=== PATIENT | male | born 1940 | race Caucasian/White ===

== ENCOUNTER 2023-03-18 12:53 | Inpatient (IN) | payer MEDICARE, SELFPAY ==
[2023-03-18] VITALS (25 sets, daily range): BP systolic 111–148; BP diastolic 48–78; PULSE 64–91; RESP 16–33; TEMP 36.4–36.7; O2SAT 92–100; BMI 29.6
--- NOTE | ~2023-03-18 | XR_ITS ---
XR chest 2V DATE: 03/18/2023 13:52 INDICATION: Shortness of breath TECHNIQUE: AP and lateral views COMPARISON: None FINDINGS: Cardiomegaly. There is pulmonary vascular prominence. There are diffuse pulmonary interstit ial infiltrates, with some probable areas of consolidation in the mid and particularly lower lung zon es in addition to probable bilateral lower lung atelectasis. There are bilateral pleural effusions, m ild amount of the right, mild on the left. Aortic arch calcification. Diffuse osteopenia. IMPRESSION: Congestive heart failure, probable pulmonary edema. Pneumonia is not excluded Reviewed, dictated and finalized at location L. AGE CONTROL CLERK IMPRESSION: Congestive heart failure, probable pulmonary edema. Pneumonia is no t excluded
--- NOTE | ~2023-03-18 | XR_ITS ---
EXAMINATION: XR chest 1V portable INDICATION: Shortness of breath TECHNIQUE: Portable AP chest at 1134 hours COMPARISON: 03/18/2023 FINDINGS: There are diffuse opacities throughout all lung zones. There are small pleural effusions, r ight greater than left. Cardiomegaly is noted. There is no pneumothorax. IMPRESSION: 1. Diffuse lung disease, likely pneumonia versus pulmonary edema. Reviewed, dictated and finalized at location F. TESTER
--- NOTE | ~2023-03-18 | US_ITS ---
EXAMINATION: US abdomen complete DATE: 03/19/2023 19:22 INDICATION: Thrombocytopenia TECHNIQUE: Multiple grayscale and Doppler ultrasound images of the abdomen were obtained. COMPARISON: None FINDINGS: Abdominal aorta is normal in caliber measuring 2.1 cm AP proximally, 2.0 cm in the mid aorta and 1.6 cm in the distal aorta. The visualized proximal inferior vena cava is normal. The pancreatic head and body are normal in appearance. The pancreatic tail is not visualized. Liver has normal echogenicity and contour, with a smooth surface. No liver lesion identified. No intrahepatic biliary duct dilatio n suspected. Portal venous flow was seen in the hepatopetal, normal direction and has normal Doppler waveform. Sludge and shadowing gallstones within the otherwise normal-appearing gallbladder. Common bile duct measures 3-4 mm in diameter which is normal. Sonographic Bee sign was reported as negati ve by the associate professor of theology. There is normal renal contour bilaterally. There is bilateral increased renal cortical echogenicity which can be seen with medical renal disease. The right kidney measures 9.7 x 5 .7 x 5.7 cm and the left 11.8 x 5.7 x 6.4 cm. There are bilateral anechoic renal cysts measuring up t o 5.8 cm maximal diameter on the left and 2.8 cm maximal diameter on the right. There is no hydroneph rosis. Spleen measures 11.5 cm in length which is normal. Indeterminate 3.9 x 3.2 x 2.3 cm very hypoe choic region along the posterior margin of the spleen. There are bilateral pleural effusions. IMPRESSION: 1. Cholelithiasis. 2. Bilateral pleural effusions. 3. Bilateral renal cysts and increased renal cortical echogenicity, bladder consistent with medical r enal disease. 4. Indeterminate 3.9 x 3.2 x 2.3 cm hypoechoic region along the posterior margin of the spleen. It is unclear where this represents a splenic lesion (potentially cystic), a small amount of perisplenic a scites or artifactual appearance related to the depth of imaging. Could consider CT for further evalu ation. Reviewed, dictated and finalized at location A. CLEANER IMPRESSION: 1. Cholelithiasis. 2. Bilateral pleural effusions. 3. Bilateral renal cysts and increased renal cortical echogenicity, bladder con sistent with medical renal disease. 4. Indeterminate 3.9 x 3.2 x 2.3 cm hypoechoic region along the posterior johnson n of the spleen. It is unclear where this represents a splenic lesion (potentia lly cystic), a small amount of perisplenic ascites or artifactual appearance re lated to the depth of imaging. Could consider CT for further evaluation.
--- NOTE | ~2023-03-18 | CT_ITS ---
EXAMINATION: CT abdomen pelvis wo con DATE: 03/20/2023 18:45 INDICATION: Abdominal wall mass TECHNIQUE: Computed tomography (CT) of the abdomen and pelvis was performed without intravenous contr ast. Automated exposure control and iterative reconstruction technique were employed. The dose-length product was 1130.49 mGy-cm. COMPARISON: Ultrasound dated 03/19/2023 FINDINGS: Moderate emphysema. Diffuse groundglass opacities in the aerated portions of the visualized lower constantino gs which could represent atelectasis, pulmonary edema or less likely pneumonia. Small bilateral pleur al effusions. There is dependent compressive atelectasis in the left lower lobe. There is collapse of the right middle lobe but with less in expected volume loss and with heterogeneous attenuation which suggests underlying lung disease such as pneumonia or malignancy. Cervical tiny calcified nodules in the right lower lobe along with calcified right hilar and mediastinal lymph nodes and multiple scatt ered tiny hepatic and splenic calcific lesions consistent with old granulomatous disease. Cardiomegal y. Atherosclerotic coronary artery calcifications. Decreased attenuation the blood pool relative to m yocardium consistent with anemia. No pericardial effusion. Calcified gallstones at the neck of the ot herwise normal-appearing gallbladder. A millimeter low-attenuation lesion in the right hepatic lobe m ost likely representing a cyst or hemangioma. A few scattered small dystrophic calcifications at the body the pancreas likely sequela of chronic pancreatitis. Indeterminate 3.8 x 2.4 cm hypodense mass a t the medial aspect of the spleen. 1.4 cm low-density right adrenal adenoma measuring -20 HU. Indeter minate bilobed soft tissue density 3.7 x 3.1 cm left adrenal mass. There are multiple bilateral renal cysts the largest a simple fluid attenuation 5.5 cm exophytic cyst at the left kidney. This also inc ludes a few smaller bilateral high attenuation proteinaceous/hemorrhagic cyst. There are also bilater al intermediate attenuation renal lesions, the largest on the right measuring 2.9 cm which could repr esent additional complex cysts although differential would also include renal cell carcinoma. There i s mild bilateral hydroureteronephrosis extending to the distended bladder without evident obstructing stone or mass is likely reflecting outlet obstruction from the enlarged prostate which measures 6 x 5 cm. There are few scattered colonic diverticula without adjacent from trace stranding to suggest di verticulitis. Surgical clip and anastomotic suture line along the transverse colon. Small bowel and a ppendix are normal. There is prominent stranding with a few small more irregular nodular densities al cathleen the greater omentum in the right abdomen. There is a 3.8 x 2.7 cm loculated fluid collection like ly along the lesser omentum between the greater curvature of the stomach and the transverse colon, po tentially postoperative hematoma/seroma. No infiltrate stranding immediately adjacent fat to elevate suspicion for abscess.. No free intraperitoneal gas or fluid. Small fat-containing right inguinal her tanya. There is calcified atherosclerosis of the aorta and many of the other arteries. There is stentin g at the bilateral common iliac and proximal external iliac arteries. No pathologically enlarged abdo brisa or pelvic lymphadenopathy. Moderate lumbar and lower thoracic spondylosis with bridging osteoph ytes at multiple levels consistent with diffuse idiopathic skeletal hyperostosis (DISH). There are se veral scattered small densely sclerotic bone islands in the pelvis and proximal femurs. IMPRESSION: 1. Nonspecific lung disease in the collapsed right lower lobe which could represent pneumonia or rishi gnancy. 2. Small bilateral pleural effusions. 3. Indeterminate 3.8 x 2.4 cm hypodense mass at the medial spleen. 4. Cardiomegaly. 5. Stranding and possible nodularity along the right
--- NOTE | ~2023-03-18 | US_ITS ---
EXAMINATION: US venous doppler [facility] DATE: 03/19/2023 19:09 INDICATION: Bilateral swelling TECHNIQUE: Grayscale ultrasound images without and with compression and Doppler ultrasound images of the bilateral lower extremity veins were obtained. COMPARISON: None. FINDINGS: The visualized portions of right common femoral vein, profunda (deep) femoral vein, femoral vein, pop liteal vein, posterior tibial veins, peroneal veins and greater saphenous vein outflow are patent. The visualized portions of left common femoral vein, profunda femoral vein, femoral vein, popliteal v ein, posterior tibial veins, peroneal veins and greater saphenous vein outflow are patent. IMPRESSION: 1. No deep venous thrombosis in either lower limb. Reviewed, dictated and finalized at location A. B RN
--- NOTE | 2023-03-18 13:14 | ECG_ITS ---
Measurements Intervals [place] Rate: 65 P: 46 IL: 217 QRS: -16 QRSD: 197 T: 189 QT: 456 QTc: 477 Interpretive Statements SINUS RHYTHM WITH FIRST DEGREE AV BLOCK LEFT BUNDLE BRANCH BLOCK BASELINE ARTIFACT- I, II, III, V1-V6 ABNORMAL ECG NO PREVIOUS ECG AVAILABLE FOR COMPARISON Electronically Signed On 03-18-2023 13:43:11 STEEL ERECTOR by Ambrocio Lund D.O.
[2023-03-18 13:40] LABS: Eosinophils Percent Auto 0.2 % (0-4.4); Hematocrit 26.5 % (42.0-52.0); Hemoglobin 8.1 g/dL (14.0-18.0); Immature Granulocyte Absolute 0.23 K/mm3 (0.00-0.031); Immature Granulocyte Percent A 4.3 % (0-0.5); Immature Platelet Fraction Pct 11.4 % (0.9-11.2); Lymphocytes Absolute Auto 0.47 K/mm3 (0.9-3.2); Lymphocytes Percent Auto 8.9 % (18.3-44.2); Mean Corpuscular HGB Conc 30.6 g/dl (32-36); Mean Corpuscular Volume 98.1 fl (80-100); Mean Platelet Volume 12.7 fl (7.4-10.4); Monocytes Absolute Auto 2.3 K/mm3 (0.1-0.6); Monocytes Percent Auto 42.5 % (2.6-8.5); Neutrophils Absolute Auto 2.3 K/mm3 (1.3-6.7); Neutrophils Percent Auto 44.1 % (45.5-73.1); Platelet Count Result 66 k/mm3 (150-375); Red Cell Distribution Width 18.8 % (11.5-14.5); White Blood Count 5.3 K/mm3 (4.5-10.0)
--- NOTE | 2023-03-18 13:46 | ED.GENADULT ---
HPI - General Adult General Chief complaint: Shortness of Breath/Dyspnea Stated complaint: DYSPNEA Time Seen by Provider: 03/18/23 13:43 History of Present Illness HPI narrative: 82-year-old male with history of CHF, CAD, hypertension, high cholesterol, COPD, thrombocytopenia, type 2 diabetes, chronic kidney disease that was admitted to [facility] from home. Patient was admitted last night. Patient did have a recent admission to [facility] ICU for an NSTEMI. The patient was discharged home from the ICU on 02/27 in after getting home patient he did have multiple falls. Patient was admitted to inpatient rehab by his primary care physician. This morning the patient was found to be hypoxic, short of breath with lower extremity edema patient had a BNP of greater than 30,000 a creatinine of 2. Patient is requiring 4 5 L of oxygen. Hospitalist did not feel the patient was stable for rehab hospitalization Related Data Home Medications Medication Instructions Recorded Confirmed atorvastatin 40 mg tablet 40 mg PO HS 03/17/23 03/17/23 carvedilol 3.125 mg tablet 3.125 mg PO BID 03/17/23 03/17/23 cephalexin 500 mg capsule 500 mg PO BID 03/17/23 03/17/23 cyanocobalamin (vitamin B-12) 100 100 mcg PO BID 03/17/23 03/17/23 mcg tablet empagliflozin 10 mg tablet 10 mg PO DAILY 03/17/23 03/17/23 (Jardiance) fish gah-vtpsl-2-vit C-vit E 1,000 mg PO BID 03/17/23 03/17/23 furosemide 40 mg tablet 40 mg PO DAILY 03/17/23 03/17/23 insulin glargine 100 unit/mL 20 unit subcut QHS 03/17/23 03/17/23 subcutaneous solution (Lantus U-100 Insulin) insulin lispro 100 unit/mL See Protocol subcut TIDWM 03/17/23 03/17/23 subcutaneous solution (Humalog U-100 Insulin) ipratropium 0.5 mg-albuterol 3 mg 3 ml inhalation QID 03/17/23 03/17/23 (2.5 mg base)/3 mL nebulization soln isosorbide dinitrate 20 mg tablet 20 mg PO BID 03/17/23 03/17/23 latanoprost 0.005 % eye drops 1 drp EACH EYE QHS 03/17/23 03/17/23 pantoprazole 40 mg tablet,delayed 40 mg PO QPM 03/17/23 03/17/23 release spironolactone 25 mg PO DAILY 03/17/23 03/17/23 tamsulosin 0.4 mg capsule 0.4 mg PO HS 03/17/23 03/17/23 Allergies Allergy/AdvReac Type Severity Reaction Status Date / Time No Known Allergies Allergy Verified 03/18/23 17:04 Review of Systems Review of Systems: All systems reviewed & are unremarkable except as noted in HPI and below [facility] Past Medical History Medical History (Updated 03/18/23 @ 19:11 by Vasquez Capps MD) Chronic anemia Chronic kidney disease Chronic obstructive pulmonary disease Combined systolic and diastolic congestive heart failure Coronary artery disease Glaucoma Hyperlipidemia Hypertension Insulin dependent type 2 diabetes mellitus Ischemic cardiomyopathy Prolonged QT interval Thrombocytopenia Surgical History Surgical History (Updated 03/18/23 @ 18:30 by Opal Kathleen PA-C) History of partial colectomy (01/2023) Transverse colectomy at [facility]. Social History Social History (Updated 03/18/23 @ 18:31 by Opal Kathleen PA-C) Social History: Surrogate medical decision maker: Denise Andrade, daughter. Code status: Full code. Smoking packs per day: 3 Smoking cigarettes per day: 60.0 Years smoked: 30 Smoking pack-years: 90.00 Smoking status: Former smoker Tobacco type: cigarettes Second hand tobacco smoke exposure: Yes (Paternal) Smoking end date: 03/19/13 Alcohol intake: former Substance use: never Spiritual care concerns: No Exam Narrative: APPEARANCE: Well appearing, no pain, no distress, well-nourished. HEAD: normocephalic, atraumatic. EYES: PERRLA/EOMI, conjunctivae clear. NOSE: Normal no drainage EARS:TMS clear with good light reflex. THROAT: Pharynx clear, no exudate. NECK: Supple. No adenopathy, no masses. RESPIRATORY: Airway patent, respirations nonlabored. Clear to auscultation bilaterally, no rales, rhonchi, wheezing. CARDIOVASCULAR: Regular rate and rhythm w
[2023-03-18 13:49] LABS: Alanine Aminotransferase 25 U/L (6-50); Albumin Level 3.1 g/dL (3.5-5.1); Alkaline Phosphatase 78 U/L (38-126); Anion Gap 5 mmol/L (8-16); Aspartate Amino Transferase 18 U/L (17-59); Bilirubin,Total 1.1 mg/dL (0.2-1.3); Blood Urea Nitrogen 60 mg/dL (9-20); Calcium 8.3 mg/dL (8.4-10.2); Carbon Dioxide 31 mmol/L (22-30); Chloride 100 mmol/L (98-107); Estimated CRCL calculation 30 ml/min; Estimated Glomerular Filt Rate 29; Glucose 190 mg/dL (65-110); Potassium 4.5 mmol/L (3.4-5.0); Sodium 136 mmol/L (137-145)
[2023-03-18 13:58] LABS: Platelet Estimate Decreased (Adequate); Schistocytes None Seen (NORMAL)
[2023-03-18 13:59] LABS: Hypochromasia 2+ (NORMAL)
[2023-03-18 14:29] LABS: NT Pro B Type Natriuretic Pept > 30000 pg/mL (19.9-100)
--- NOTE | 2023-03-18 16:11 | PC.NURSE ---
Pts daughter Diana called ER inquiring pt status. She states that [facility] staff were frustrated last night upon pt admission because of pt weakness, the staff at rehab reported to daughter they could not handle pt kidney failure. Diana voices she sent him to rehab for his weakness and is not understanding rehab concerns.
--- NOTE | 2023-03-18 17:11 | PC.NURSE ---
Pt repositioned for comfort. Pt & daughter state pt has sore on coccyx & bilateral great toes, right 3rd toe. Wound on left great toe scabbed with surrounding tissue red. Pedal pulses palp.
--- NOTE | 2023-03-18 17:27 | PC.NURSE ---
Dr. wiggisn informed pt Sa02 dropped to 80% with 5L NC oxygen. Resp therapy informed of stat Resp treatment
[2023-03-18] MEDS: ALBUTEROL SULFATE NEB 2.5 MG/3 ML INH INHALATION (17:35)
[2023-03-18] MEDS: FUROSEMIDE INJ 40 MG/4 ML VIAL IV PUSH (17:52)
--- NOTE | 2023-03-18 18:01 | PC.NURSE ---
Pt unable to maintain Sa02 on nasal cannula. Oxygen via NRB mask applied Sa02 up to 100%. Dr. Capps informed, request Resp place pt on bipap. Angelica with resp notified
--- NOTE | 2023-03-18 18:21 | PM.IMHP ---
H&P: HPI History of Present Illness Date/Time: 03/18/23 19:30 Chief Complaint: Shortness of breath. Narrative: This is a very pleasant 82-year-old male with multiple medical problems including combined diastolic and systolic congestive heart failure, ischemic cardiomyopathy, coronary artery disease, prolonged QT interval, hypertension, hyperlipidemia, chronic kidney disease, anemia, chronic obstructive pulmonary disease, insulin-dependent type 2 diabetes mellitus, gastroesophageal reflux disease, benign prostatic hyperplasia, and thrombocytopenia who presented to the emergency department via EMS from [facility] for evaluation of shortness of breath. The patient provides the following history. He has been hospitalized several times in the last couple of months. In mid January he had a transverse colectomy due to a large colon polyp which was ultimately discovered to be benign. He was hospitalized not long thereafter with rectal bleeding due to surgical site hematoma. He was admitted to [facility] on 02/23/2023 with non STEMI (no intervention, started on guideline directed medical therapy for combined systolic and diastolic congestive heart failure) and was discharged home with home health 5 days thereafter. He felt quite weak on discharge and he has been weak at home and has had several falls, luckily not injuring himself. His primary care provider referred him for rehabilitation [facility] where he was admitted last night. He was sent to the emergency department today as he was hypoxic and short of breath though the patient did not think he was any worse than his baseline. His SpO2 was as low as 86% on the 3 L he presented on and he was ultimately started on BiPAP due to ongoing hypoxia. Preliminary workup was significant for a BNP of greater than 30,000, hemoglobin 8.1, platelets 66, BUN 60, creatinine 2.20. Chest x-ray showed congestive changes. He was given a dose of IV furosemide 40 mg is being admitted in this setting with CHF exacerbation. At the time my evaluation he does not have any specific complaints and denies syncope, near syncope, fever, chills, sweats, sinus congestion, sore throat, cough, chest pain, pleuritic pain, palpitations, sensations of racing heart, abdominal pain, nausea, vomiting, diarrhea, and dysuria. He also denies epistaxis, gingival bleeding, melena, hematochezia, and hematuria. Review of Systems Constitutional: Comments: Twelve systems were reviewed and are negative except for as per HPI. PMFSH Past Medical History Medical History (Updated 03/19/23 @ 00:36 by Opal Kathleen PA-C) Chronic anemia Chronic kidney disease Chronic obstructive pulmonary disease Combined systolic and diastolic congestive heart failure Coronary artery disease Glaucoma Hyperlipidemia Hypertension Insulin dependent type 2 diabetes mellitus Ischemic cardiomyopathy Peripheral vascular disease Prolonged QT interval Thrombocytopenia Surgical History Surgical History (Updated 03/19/23 @ 00:33 by Opal Kathleen PA-C) History of cardiac catheterization History of coronary artery stent placement History of intravascular stent placement Right lower extremity. History of partial colectomy (01/2023) Transverse colectomy at [facility]. Social History Social History Social History: Surrogate medical decision maker: Denise Andrade, daughter. Code status: Full code. Smoking packs per day: 3 Smoking cigarettes per day: 60.0 Years smoked: 30 Smoking pack-years: 90.00 Smoking status: Former smoker Tobacco type: cigarettes Second hand tobacco smoke exposure: Yes (Paternal) Smoking end date: 03/19/13 Alcohol intake: never Substance use: never Substance use type: does not use Do You Feel Safe in your Home?: Yes Lack of Transportation: No Lack of Food: Never True Current Housing: I Have Housing Concerned About Fut
--- NOTE | 2023-03-18 19:19 | PC.NURSE ---
Pt tolerating Bipap. Assisted with urinal, pt repositioned for comfort. Daughters at bedside. Report to Maxine VASQUES
--- NOTE | 2023-03-18 19:28 | PC.NURSE ---
Pt tolerating Bipap. Daughters at bedside. [facility] notified spoke with Erika pt being admitted. Pt repositioned for comfort
--- NOTE | 2023-03-18 20:03 | PC.NURSE ---
Faxed medical release to [facility] to obtain records
[2023-03-18] MEDS: FUROSEMIDE INJ 40 MG/4 ML VIAL 20 MG IV PUSH (22:58)
[2023-03-19] VITALS (27 sets, daily range): BP systolic 112–125; BP diastolic 52–63; PULSE 61–91; RESP 17–38; TEMP 36.2–36.8; O2SAT 91–100
--- NOTE | 2023-03-19 01:11 | PC.NURSE ---
This patient, Mike Barbosa, was admitted to IMU Room 202-01. Patient oriented to hospital policies and general routines including ID bracelet, bed and alarms, visiting hours, pain management, procedures, bathroom and other care routines, personal items, smoking policy, room service/diet, and visiting hours. Information on how to activate the Rapid Response Team has been discussed. Patient encouraged to report perceived risks to care and to ask questions if they do not understand what they are told or what they should do.
[2023-03-19 04:57] LABS: Hematocrit 30.2 % (42.0-52.0); Mean Corpuscular HGB Conc 29.8 g/dl (32-36); Mean Corpuscular Hemoglobin 29.7 pg (26-34); Mean Corpuscular Volume 99.7 fl (80-100); Mean Platelet Volume 12.9 fl (7.4-10.4); Platelet Count Result 67 k/mm3 (150-375); Red Blood Count 3.03 M/mm3 (4.6-6.20); Red Cell Distribution Width 19.9 % (11.5-14.5); White Blood Count 6.5 K/mm3 (4.5-10.0)
[2023-03-19 05:20] LABS: Anion Gap 7 mmol/L (8-16); Blood Urea Nitrogen 53 mg/dL (9-20); Calcium 8.6 mg/dL (8.4-10.2); Carbon Dioxide 32 mmol/L (22-30); Chloride 101 mmol/L (98-107); Estimated CRCL calculation 28 ml/min; Estimated Glomerular Filt Rate 30; Glucose 108 mg/dL (65-110); Magnesium 2.3 mg/dL (1.6-2.3); Potassium 4.2 mmol/L (3.4-5.0); Sodium 140 mmol/L (137-145)
[2023-03-19 05:25] LABS: Hemoglobin A1C 4.9 % (<5.7)
[2023-03-19 08:03] LABS: Glucose Point of Care 92 mg/dl (65-105)
[2023-03-19] MEDS: CYANOCOBALAMIN 1,000 MCG TABLET 1000 MCG PO (08:38)
[2023-03-19] MEDS: OMEGA 3 POLYUNSAT FATTY ACIDS 1 GM CAP PO ×2 (08:38→19:00)
[2023-03-19] MEDS: EMPAGLIFLOZIN 10 MG TABLET PO (08:38)
[2023-03-19] MEDS: carvediloL 3.125 MG TABLET PO ×2 (08:38→21:13)
[2023-03-19] MEDS: SPIRONOLACTONE 25 MG TABLET PO (08:38)
[2023-03-19] MEDS: FUROSEMIDE INJ 40 MG/4 ML VIAL IV PUSH ×2 (08:38→19:04)
[2023-03-19] MEDS: ISOSORBIDE DINITRATE 20 MG TABLET PO ×2 (08:39→19:00)
[2023-03-19] MEDS: CEPHALEXIN 500 MG CAPSULE PO ×2 (08:39→21:13)
[2023-03-19 09:30] LABS: Iron 48 ug/dL (49-181)
[2023-03-19 09:39] LABS: Percent Iron Saturation 16 % (20-50)
--- NOTE | 2023-03-19 10:09 | PDONCCN ---
HPI - Date of Consult Date/Time: 03/19/23 10:09 Requesting Physician: Santino Hector MD Primary Care Provider: Mario Rogers, - Consult Narrative Reason for consult: Thrombocytopenia and Anemia Narrative: Mike Barbosa is a 82 year old male with a past medical history of HF, COPD, HTN, HLD, CKD, anemia, COPD, DM, GERD, BPH who was admitted for shortness of breath and hypoxia from [facility]. He did not feel as if it was worse than his baseline. He hospitalized in mid January and he had a transverse colectomy due to a large colon polyp which was ultimately discovered to be benign. He was hospitalized not long thereafter with rectal bleeding due to surgical site hematoma. He was admitted to [facility] in [place] on 02/23/2023 with non STEMI and was discharged home with home health 5 days later. He felt weak and his PCP admitted him to [facility]. The hospitalist at rehab did not find him fit for rehab as he was hypoxic and short of breath though the patient did not think he was any worse than his baseline. He denies having blood loss now. Reports occasional alcohol use in the past. Did not have a history of anemia before this blood loss incident. He reports seeing a kidney doctor once. He is currently tolerating BIPAP well and reports some shortness of breath. Review of Systems - Review of Systems All systems reviewed & are unremarkable except as noted in [facility] and [facility] Medical History: Medical History (Last Updated 03/19/23 @ 00:33 by Opal Kathleen PA-C) Chronic anemia Chronic kidney disease Chronic obstructive pulmonary disease Combined systolic and diastolic congestive heart failure Coronary artery disease Glaucoma Hyperlipidemia Hypertension Insulin dependent type 2 diabetes mellitus Ischemic cardiomyopathy Peripheral vascular disease Prolonged QT interval Thrombocytopenia Surgical History: Surgical History (Last Updated 03/19/23 @ 00:33 by Opal Kathleen PA-C) History of cardiac catheterization History of coronary artery stent placement History of intravascular stent placement Right lower extremity. History of partial colectomy Onset Date: 01/2023 Transverse colectomy at [facility]. - Social History Social History: Social History (Last Reviewed 03/19/23 @ 00:33 by Opal Kathleen PA-C) Alcohol Use: Alcohol intake: never Substance Use: Substance use: never Substance use type: does not use Others: Spiritual care concerns: No Smoking Status: Smoking status: Former smoker Tobacco type: cigarettes Second hand tobacco smoke exposure: Yes Second hand tobacco smoke exposure comment: Paternal Smoking end date: 03/19/13 Approximate Smoking End Date: 2011 Smoking Pack-years: Smoking packs per day: 3 Smoking cigarettes per day: 60.0 Years smoked: 52 Smoking pack-years: 156.00 Social Determinants of Health: Do You Feel Safe in your Home?: Yes Has the Lack of Transportation Kept You From Medical Appointments or From Getting Medications?: No Within the Past 12 Months, Were You Worried Whether Your Food Would Run Out Before You Got Money to Buy More?: Never True What is Your Housing Situation Today?: I Have Housing Are You Worried That in the Next 2 Months, You May Not Have Your Own Housing to Live In?: No Do You Have Trouble Paying Your Heating Or Electricity Bill?: No Do You Have Trouble Paying For Medicines?: No Are You Currently Unemployed and Looking for Work?: No Highest Level of Education Completed: Decline to Answer Do You Have Trouble With Childcare or the Care of a Family Member?: No Exam - General Pt is resting in bed, with BIPAP on, in no acute distress - Vital Signs Vital Signs - 24 hr 03/18/23 13:07 03/18/23 13:01 03/18/23 13:15 Temperature 36.4 C Pulse Rate 71 91 70 Respiratory Rate 24 H 17 17 Blood Pressure 116/54 L
[2023-03-19 10:11] LABS: Folic Acid 3.5 ng/mL (2.76->20); Vitamin B12 > 1000.0 pg/mL (239-931)
[2023-03-19 12:00] LABS: Glucose Point of Care 108 mg/dl (65-105)
[2023-03-19] MEDS: IRON SUCROSE COMPLEX 500 MG in SODIUM CHLORIDE 0.9% IV 250 ML 78.57 MG IVPB (15:31)
--- NOTE | 2023-03-19 16:35 | PM.IMPN ---
Progress Note: A&P Assessment and Plan (1) Acute respiratory failure with hypoxia: Code(s): J96.01 - Acute respiratory failure with hypoxia Status: Acute Assessment and Plan: Presumably secondary to congestive changes noted on imaging. Pulmonary embolism is a consideration though seems less likely. Unable to have chest CTA due to decreased GFR. Lower extremity venous Doppler ultrasounds ordered and is pending Consider V/Q scan. Wean Bipap off as tolerated to nasal cannula (2) Acute exacerbation of congestive heart failure: Code(s): I50.9 - Heart failure, unspecified Status: Acute Assessment and Plan: Chest x-ray shows congestive changes. BNP >30K Judicious IV diuresis with close monitoring of volume status, renal function, and electrolytes. Records requested from [facility] to review recent echocardiogram. Monitor for urine retention (3) Chronic kidney disease: Code(s): N18.9 - Chronic kidney disease, unspecified Status: Acute Assessment and Plan: Patient and family reports CKD but baseline creatinine is unknown. Records requested from [facility] for comparison. Bladder scan to rule out urinary retention. Check Renal ultrasound (4) Thrombocytopenia: Code(s): D69.6 - Thrombocytopenia, unspecified Status: Acute Assessment and Plan: Patient reports having platelet transfusion when hospitalized with bleeding following his colectomy last month. He does not have a longstanding history of thrombocytopenia. Hematology consulted for their opinion. (5) Chronic anemia: Code(s): D64.9 - Anemia, unspecified Status: Acute Assessment and Plan: Patient reports chronic anemia and received several units of packed red blood cells with his hospitalization in January. Hgb stable in the 8-9 range. Better today as he is undergoing diuresis. Iron studies consistent with iron deificiency anemia. B12/folate normal. Continue to monitor closely and transfuse if hemoglobin drops below 7.0. IV iron (6) Chronic obstructive pulmonary disease: Code(s): J44.9 - Chronic obstructive pulmonary disease, unspecified Status: Acute Assessment and Plan: No wheezing on exam to suggest acute exacerbation. Hold on steroids for now. (7) Coronary artery disease: Code(s): I25.10 - Atherosclerotic heart disease of [place] coronary artery without angina pectoris Status: Acute Assessment and Plan: Patient is not having any chest discomfort. EKG shows left bundle branch block which is reportedly chronic. Did not have ischemic evaluation with recent hospitalization for non STEMI. Cardiology consulted. Continue Coreg, Lipitor. No ASA due to anemia and TCP. 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 The patient's blood glucose was reviewed on 03/19 Glucose remains well controlled. Continue AccuCheks covering with sliding scale. Hypoglycemia protocol available as needed. Continue to monitor (9) Hypertension: Code(s): I10 - Essential (primary) hypertension Status: Acute Assessment and Plan: Patient's blood pressure was reviewed on 03/19 Blood pressure remains well controlled. Will continue to follow Plan DVT prophylaxis -SCDs Code status -full Subjective Date/time seen: 03/19/23 16:35 Interval history: 82yo male with COPD, CHF, CAD, HTN and DM here for SOB. Assuming care. Chart reviewed. Came off Bipap this morning for about 30min before having to go back on. No CP. No SOB since being back on bipap. No n/v. No hx of ANDREW. Has been on O2 3L at home for the past 2 weeks. Was recently discharged 2 weeks ago and was told to take Lasix as needed (normally was on scheduled Lasix).
--- NOTE | 2023-03-19 16:44 | PM.CNCAR ---
Assessment and Plan Assessment and plan (1) Acute exacerbation of congestive heart failure: Code(s): I50.9 - Heart failure, unspecified Status: Acute Assessment and Plan: Patient presents with evidence of decompensated heart failure and acute hypoxic respiratory failure initially BiPAP dependent for fractured IV Lasix thus far. Continue supportive care of hospital including echo cardiac evaluation, laboratory studies when available as requested. Accurate input and output, daily weight. Continue manager monitoring for ventricular arrhythmias. Continue Lasix 40 mg IV twice daily, Jardiance 10 mg daily, carvedilol 3.125 mg twice daily, Isordil 20 mg twice daily, spironolactone 25 mg daily. Continue to monitor renal function electrolytes closely. At this time, patient is hemodynamically stable. Further recommendation to follow after review of outside evaluations and patient's clinical response to therapy. Patient presents with multiple comorbidities anemia, thrombocytopenia, acute on chronic respiratory failure, reported recent NSTEMI, CKD, COPD, and CAD. Patient at high risk for complications. Continue close IMU observation on telemetry. Patient at high risk for subsequent decline and intubation if he does not respond to noninvasive positive pressure ventilatory support. (2) Acute respiratory failure with hypoxia: Code(s): J96.01 - Acute respiratory failure with hypoxia Status: Acute Assessment and Plan: As above, wean O2 and noninvasive positive-pressure ventilation support as clinically appropriate in as tolerated. Exacerbated secondary to acute on chronic heart failure decompensation complicated by underlying COPD, anemia. Check troponin. (3) Thrombocytopenia: Code(s): D69.6 - Thrombocytopenia, unspecified Status: Acute Assessment and Plan: Chronic thrombocytopenia severity around 67,000. Patient is not a good candidate for full systemic anticoagulation of warranted as well as antiplatelet therapy particularly given recent bleeding complications and ongoing anemia. (4) Coronary artery disease: Code(s): I25.10 - Atherosclerotic heart disease of [place] coronary artery without angina pectoris Status: Acute Assessment and Plan: Reported NSTEMI for least elevated troponin outside hospital which I do not have the records available for review at this time. These have been requested. Further recommendations after review. Continue atorvastatin 40 mg at bedtime, 3 will advise mg twice daily. He remains on Isordil 20 mg twice daily. (5) Acute kidney injury superimposed on chronic kidney disease: Code(s): N17.9 - Acute kidney failure, unspecified; N18.9 - Chronic kidney disease, unspecified Status: Acute Assessment and Plan: Mild acute on chronic kidney injury. Monitor input and output, daily weight. Minimize nephrotoxic agents. Provided his renal function remains stable continue diuretic therapy as tolerated (6) Anemia: Code(s): D64.9 - Anemia, unspecified Status: Acute Assessment and Plan: Further workup for anemia as appropriate. Oncology consultation noted. Multifactorial etiology most likely. (7) Insulin dependent type 2 diabetes mellitus: Code(s): E11.9 - Type 2 diabetes mellitus without complications; Z79.4 - FPC (current) use of insulin Status: Acute Assessment and Plan: Management per hospitalist service. Lantus insulin with sliding scales appropriate. History of Present Illness History of Present Illness Consult date/time: Date of service: 03/19/23 16:44 Requesting physician: Opal Kathleen PA-C Consult reason: congestive heart failure Reason For Visit: Congestive Heart Failure, Fluid Overload, Hypoxia, Narrative: Patient is a pleasant yet complicated 82-year-old gentleman a past medical history significant for reported systolic and diastolic heart failure, CAD, ischemic cardiom
[2023-03-19 16:58] LABS: Glucose Point of Care 92 mg/dl (65-105)
[2023-03-19 18:21] LABS: Glucose Point of Care 96 mg/dl (65-105)
[2023-03-19] MEDS: FERROUS SULFATE 325 MG TABLET DR PO (19:03)
[2023-03-19 19:38] LABS: Glucose Point of Care 130 mg/dl (65-105)
--- NOTE | 2023-03-19 19:55 | PC.NURSE ---
pt has been NPO today for US abdomen- @184 US completed at bedside- evening medications given - remains on BIPAP resp @30- pt stated he was breathing better than earlier today
[2023-03-19] MEDS: TAMSULOSIN HCL 0.4 MG CAPSULE PO (21:13)
[2023-03-19] MEDS: ATORVASTATIN 40 MG TABLET PO (21:13)
[2023-03-19] MEDS: INSULIN GLARGINE (*BKC) 100 UNITS/ML 20 UNITS SUB-Q (21:14)
[2023-03-19] MEDS: LATANOPROST 0.005% OP SOLN 2.5 ML BTL 1 DROP EACH EYE (21:16)
[2023-03-20] VITALS (20 sets, daily range): BP systolic 112–133; BP diastolic 53–72; PULSE 71–99; RESP 20–30; TEMP 36.1–36.7; O2SAT 90–99
[2023-03-20 02:08] LABS: Glucose Point of Care 80 mg/dl (65-105)
[2023-03-20 05:39] LABS: Basophils Percent Auto 0.2 % (0.2-1.2); Eosinophils Percent Auto 0.2 % (0-4.4); Hematocrit 27.4 % (42.0-52.0); Hemoglobin 8.3 g/dL (14.0-18.0); Immature Granulocyte Absolute 0.22 K/mm3 (0.00-0.031); Immature Platelet Fraction Pct 9.8 % (0.9-11.2); Lymphocytes Absolute Auto 0.49 K/mm3 (0.9-3.2); Mean Corpuscular HGB Conc 30.3 g/dl (32-36); Mean Corpuscular Hemoglobin 29.6 pg (26-34); Mean Corpuscular Volume 97.9 fl (80-100); Mean Platelet Volume 12.7 fl (7.4-10.4); Monocytes Absolute Auto 2.8 K/mm3 (0.1-0.6); Monocytes Percent Auto 50.5 % (2.6-8.5); Neutrophils Percent Auto 36.1 % (45.5-73.1); Platelet Count Result 62 k/mm3 (150-375); Red Cell Distribution Width 19.8 % (11.5-14.5); White Blood Count 5.5 K/mm3 (4.5-10.0)
[2023-03-20 05:53] LABS: Alanine Aminotransferase 20 U/L (6-50); Albumin Level 3.1 g/dL (3.5-5.1); Alkaline Phosphatase 81 U/L (38-126); Anion Gap 6 mmol/L (8-16); Aspartate Amino Transferase 16 U/L (17-59); Bilirubin,Total 2.1 mg/dL (0.2-1.3); Blood Urea Nitrogen 46 mg/dL (9-20); Calcium 8.5 mg/dL (8.4-10.2); Carbon Dioxide 34 mmol/L (22-30); Chloride 101 mmol/L (98-107); Estimated CRCL calculation 29 ml/min; Estimated Glomerular Filt Rate 32; Glucose 111 mg/dL (65-110); Magnesium 2.2 mg/dL (1.6-2.3); Phosphorus 2.7 mg/dL (2.5-4.5); Sodium 141 mmol/L (137-145)
[2023-03-20 08:05] LABS: Glucose Point of Care 87 mg/dl (65-105)
[2023-03-20] MEDS: FUROSEMIDE INJ 40 MG/4 ML VIAL IV PUSH ×2 (10:09→17:45)
[2023-03-20] MEDS: SPIRONOLACTONE 25 MG TABLET PO (10:09)
[2023-03-20] MEDS: carvediloL 3.125 MG TABLET PO ×2 (10:12→20:25)
[2023-03-20] MEDS: ISOSORBIDE DINITRATE 20 MG TABLET PO ×2 (10:12→17:45)
[2023-03-20] MEDS: CYANOCOBALAMIN 1,000 MCG TABLET 1000 MCG PO (10:12)
[2023-03-20] MEDS: CEPHALEXIN 500 MG CAPSULE PO ×2 (10:12→20:24)
[2023-03-20] MEDS: OMEGA 3 POLYUNSAT FATTY ACIDS 1 GM CAP PO ×2 (10:12→17:45)
[2023-03-20] MEDS: EMPAGLIFLOZIN 10 MG TABLET PO (10:12)
[2023-03-20] MEDS: FERROUS SULFATE 325 MG TABLET DR PO ×2 (10:12→17:45)
[2023-03-20 11:32] LABS: Glucose Point of Care 163 mg/dl (65-105)
--- NOTE | 2023-03-20 13:08 | PM.PNCARD ---
Progress Note: A&P Assessment and Plan (1) Acute exacerbation of congestive heart failure: Code(s): I50.9 - Heart failure, unspecified Status: Acute Assessment and Plan: Patient presents with evidence of decompensated heart failure and acute hypoxic respiratory failure initially BiPAP dependent for fractured IV Lasix thus far. Continue supportive care of hospital including echo cardiac evaluation, laboratory studies when available as requested. Accurate input and output, daily weight. Continue child monitor for ventricular arrhythmias. -Continue Lasix 40 mg IV twice daily, Jardiance 10 mg daily, carvedilol 3.125 mg twice daily, Isordil 20 mg twice daily, spironolactone 25 mg daily. Continue to monitor renal function electrolytes closely. At this time, patient is hemodynamically stable. Further recommendation to follow after review of outside evaluations and patient's clinical response to therapy. Patient presents with multiple comorbidities anemia, thrombocytopenia, acute on chronic respiratory failure, reported recent NSTEMI, CKD, COPD, and CAD. Patient at high risk for complications. Continue close IMU observation on telemetry. Patient at high risk for subsequent decline and intubation if he does not respond to noninvasive positive pressure ventilatory support. He is improving as he is no longer BiPAP dependent yet still remains hypoxic. Continue IV diuresis repeat chest x-ray, check troponin. Continue telemetry. Review prior cardiac records when available. Recommendations to follow. DVT prophylaxis. Underlying left bundle-branch block on ECG chronicity unknown. Unfortunate, patient remains quite ill at this time. (2) Acute respiratory failure with hypoxia: Code(s): J96.01 - Acute respiratory failure with hypoxia Status: Acute Assessment and Plan: As above, wean O2 and noninvasive positive-pressure ventilation support as clinically appropriate in as tolerated. Exacerbated secondary to acute on chronic heart failure decompensation complicated by underlying COPD (pt denies), anemia. Check troponin. Recheck chest x-ray. (3) Thrombocytopenia: Code(s): D69.6 - Thrombocytopenia, unspecified Status: Acute Assessment and Plan: Chronic thrombocytopenia severity around 62,000. Patient is not a good candidate for full systemic anticoagulation of warranted as well as antiplatelet therapy particularly given recent bleeding complications and ongoing anemia. (4) Coronary artery disease: Code(s): I25.10 - Atherosclerotic heart disease of [place] coronary artery without angina pectoris Status: Acute Assessment and Plan: Reported NSTEMI for least elevated troponin outside hospital which I do not have the records available for review at this time. These have been requested. Further recommendations after review. Continue atorvastatin 40 mg at bedtime, Coreg 3.125 mg twice daily. He remains on Isordil 20 mg twice daily. (5) Acute kidney injury superimposed on chronic kidney disease: Code(s): N17.9 - Acute kidney failure, unspecified; N18.9 - Chronic kidney disease, unspecified Status: Acute Assessment and Plan: Mild acute on chronic kidney injury, however, chronicity of underlying CKD remains unclear at this time. Need to review prior labs for comparison. Renal function stable at this time since admission. Monitor input and output, daily weight. Minimize nephrotoxic agents. (6) Anemia: Code(s): D64.9 - Anemia, unspecified Status: Acute Assessment and Plan: Further workup for anemia as appropriate. Oncology consultation noted. Multifactorial etiology most likely. 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 Lantus insulin with
--- NOTE | 2023-03-20 14:05 | PC.NURSE ---
On 03/20/23, the student, [Kervin Ball ], provided care and completed [facility] documentation on this patient. I have reviewed the student's documentation and agree with the findings.
[2023-03-20 14:32] LABS: Troponin I 0.115 ng/mL (0.000-0.034)
--- NOTE | 2023-03-20 16:21 | PM.IMPN ---
Progress Note: A&P Assessment and Plan (1) Acute respiratory failure with hypoxia: Code(s): J96.01 - Acute respiratory failure with hypoxia Status: Acute Assessment and Plan: Resp failure related to congestive changes noted on imaging. Pulmonary embolism is a consideration though seems less likely. Unable to have chest CTA due to decreased GFR. Lower extremity venous Doppler negative for DVT Consider V/Q scan. Weaned off Bipap and stable on 4L. Lungs clear Wean off O2 as tolerated (2) Acute exacerbation of congestive heart failure: Code(s): I50.9 - Heart failure, unspecified Status: Acute Assessment and Plan: Chest x-ray shows congestive changes. BNP >30K Judicious IV diuresis with Lasix Records requested from [facility] to review recent echocardiogram. Cardiology following Continue close monitoring of volume status, renal function, and electrolytes. (3) Chronic kidney disease: Code(s): N18.9 - Chronic kidney disease, unspecified Status: Acute Assessment and Plan: Patient and family reports CKD but baseline creatinine is unknown. Records requested from [facility] for comparison. Bladder scan not showing urine retention but with enlarging firm abdominal mass. Consider rectus sheath hematoma. He is not on anticoagulation. Abd US noted. Check CT abdomen and pelvis (4) Thrombocytopenia: Code(s): D69.6 - Thrombocytopenia, unspecified Status: Acute Assessment and Plan: Patient reports having platelet transfusion when hospitalized with bleeding following his colectomy last month. He does not have a longstanding history of thrombocytopenia. Hematology consulted for their opinion and lab work ordered. Follow (5) Chronic anemia: Code(s): D64.9 - Anemia, unspecified Status: Acute Assessment and Plan: Patient reports chronic anemia and received several units of packed red blood cells with his hospitalization in January. Hgb stable in the 8-9 range. Iron studies consistent with iron deficiency anemia. B12/folate normal. Continue to monitor closely and transfuse if hemoglobin drops below 7.0. IV iron started (6) Chronic obstructive pulmonary disease: Code(s): J44.9 - Chronic obstructive pulmonary disease, unspecified Status: Acute Assessment and Plan: No wheezing on exam to suggest acute exacerbation. Follow (7) Coronary artery disease: Code(s): I25.10 - Atherosclerotic heart disease of [place] coronary artery without angina pectoris Status: Acute Assessment and Plan: Patient is not having any chest discomfort. EKG shows left bundle branch block which is reportedly chronic. Did not have ischemic evaluation with recent hospitalization for non STEMI. Cardiology consulted. Continue Coreg, Lipitor. No ASA due to anemia and TCP. 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 The patient's blood glucose was reviewed on 03/20 Glucose remains well controlled. Continue AccuCheks covering with sliding scale. Hypoglycemia protocol available as needed. Continue to monitor (9) Hypertension: Code(s): I10 - Essential (primary) hypertension Status: Acute Assessment and Plan: Patient's blood pressure was reviewed on 03/20 Blood pressure remains well controlled. Will continue to follow Plan DVT prophylaxis -SCDs Code status -full Subjective Date/time seen: 03/20/23 16:21 Interval history: 82yo male with COPD, CHF, CAD, HTN and DM here for SOB. Feels well today. Unclear if he used the bipap overnight. Documented that he was on it through 1230am but was on nasal cannula at 4am. Patient alert but has poor memory. no CP. Slight cough. Has been on O2 at 4L today
[2023-03-20 16:28] LABS: Glucose Point of Care 156 mg/dl (65-105)
[2023-03-20] MEDS: PANTOPRAZOLE 40 MG TABLET PO (17:45)
[2023-03-20 20:06] LABS: Glucose Point of Care 166 mg/dl (65-105)
[2023-03-20] MEDS: ATORVASTATIN 40 MG TABLET PO (20:24)
[2023-03-20] MEDS: TAMSULOSIN HCL 0.4 MG CAPSULE PO (20:24)
[2023-03-20] MEDS: LATANOPROST 0.005% OP SOLN 2.5 ML BTL 1 DROP EACH EYE (20:25)
[2023-03-20] MEDS: INSULIN GLARGINE (*BKC) 100 UNITS/ML 20 UNITS SUB-Q (20:28)
[2023-03-21] VITALS (27 sets, daily range): BP systolic 111–126; BP diastolic 45–64; PULSE 70–90; RESP 16–33; TEMP 36.1–36.7; O2SAT 92–99
[2023-03-21 04:41] LABS: Hematocrit 26.1 % (42.0-52.0); Hemoglobin 7.7 g/dL (14.0-18.0); Immature Granulocyte Absolute 0.11 K/mm3 (0.00-0.031); Immature Granulocyte Percent A 2.3 % (0-0.5); Lymphocytes Absolute Auto 0.58 K/mm3 (0.9-3.2); Lymphocytes Percent Auto 12.2 % (18.3-44.2); Mean Corpuscular HGB Conc 29.5 g/dl (32-36); Mean Corpuscular Hemoglobin 29.2 pg (26-34); Mean Corpuscular Volume 98.9 fl (80-100); Mean Platelet Volume 12.6 fl (7.4-10.4); Monocytes Absolute Auto 2.4 K/mm3 (0.1-0.6); Monocytes Percent Auto 50.4 % (2.6-8.5); Neutrophils Absolute Auto 1.7 K/mm3 (1.3-6.7); Neutrophils Percent Auto 35.1 % (45.5-73.1); Platelet Count Result 60 k/mm3 (150-375); Red Blood Count 2.64 M/mm3 (4.6-6.20); Red Cell Distribution Width 20.1 % (11.5-14.5); White Blood Count 4.7 K/mm3 (4.5-10.0)
[2023-03-21 05:12] LABS: Anisocytosis 2+ (NORMAL); Hypochromasia 2+ (NORMAL); Platelet Estimate Decreased (Adequate); Schistocytes None Seen (NORMAL)
[2023-03-21 05:13] LABS: Alanine Aminotransferase 17 U/L (6-50); Albumin Level 2.9 g/dL (3.5-5.1); Alkaline Phosphatase 74 U/L (38-126); Anion Gap 2 mmol/L (8-16); Aspartate Amino Transferase 16 U/L (17-59); Bilirubin Indirect 1.5 mg/dL (0-1.1); Bilirubin,Total 1.7 mg/dL (0.2-1.3); Blood Urea Nitrogen 42 mg/dL (9-20); Calcium 8.4 mg/dL (8.4-10.2); Carbon Dioxide 36 mmol/L (22-30); Chloride 102 mmol/L (98-107); Estimated CRCL calculation 29 ml/min; Estimated Glomerular Filt Rate 32; Glucose 91 mg/dL (65-110); Ovalocytes 1+ (NORMAL); Sodium 140 mmol/L (137-145)
[2023-03-21 05:27] LABS: Potassium 3.7 mmol/L (3.4-5.0)
[2023-03-21 08:30] LABS: Glucose Point of Care 86 mg/dl (65-105)
[2023-03-21] MEDS: EMPAGLIFLOZIN 10 MG TABLET PO (08:45)
[2023-03-21] MEDS: ISOSORBIDE DINITRATE 20 MG TABLET PO ×2 (08:45→17:37)
[2023-03-21] MEDS: FUROSEMIDE INJ 40 MG/4 ML VIAL IV PUSH (08:45)
[2023-03-21] MEDS: FERROUS SULFATE 325 MG TABLET DR PO ×2 (08:45→17:37)
[2023-03-21] MEDS: OMEGA 3 POLYUNSAT FATTY ACIDS 1 GM CAP PO ×2 (08:45→17:37)
[2023-03-21] MEDS: CYANOCOBALAMIN 1,000 MCG TABLET 1000 MCG PO (08:45)
[2023-03-21] MEDS: SPIRONOLACTONE 25 MG TABLET PO (08:45)
[2023-03-21] MEDS: CEPHALEXIN 500 MG CAPSULE PO ×2 (08:46→21:08)
[2023-03-21] MEDS: carvediloL 3.125 MG TABLET PO ×2 (08:46→21:08)
--- NOTE | 2023-03-21 09:51 | PM.PNCARD ---
Progress Note: A&P Assessment and Plan (1) Acute exacerbation of congestive heart failure: Code(s): I50.9 - Heart failure, unspecified Status: Acute Plan 82-year-old man with coronary disease and chronic ischemic cardiomyopathy. His baseline medical regimen from his physician in [place] consisted of low-dose carvedilol, furosemide, spironolactone and isosorbide. Recent admission as stated above with abdominal surgery, colon resection for what proved to be a benign mass complicated by hemorrhagic problems [facility] because of respiratory difficulty and some decompensated CHF. This is obviously complicated by his significant anemia. He is also neutropenic and thrombocytopenic. The patient is feeling better after couple of days of intravenous furosemide I am going to shift him to oral furosemide starting tomorrow. We will follow him with you while he is in the hospital. He likely would benefit hemodynamically with additional red cell transfusion as his hemoglobin is persistently low. Oncology consult is pending because of concerning findings on his abdominal CT yesterday. Chente Magaña MD [facility] Subjective Date/time seen: Date of service: 03/21/23 09:51 Interval history: Follow-up visit in this 82-year-old man with: History of coronary disease history of ischemic cardiomyopathy followed by Cardiology elsewhere. Came to this hospital from [facility] because of hypoxemia and respiratory difficulty. Found to be in some decompensated heart failure and given intravenous furosemide for the last couple of days. Patient states that his breathing is better today and he appears to be relatively comfortable. Recent care has been complicated by recent abdominal surgery to remove what a was found to be a benign colon mass this was complicated by hemorrhagic complications in the abdomen. Patient continues to be significantly anemic although that appears to be relatively stable. Had abdominal CT scan done yesterday is now having oncology consultation done because of some concerning findings on that exam. Exam Narrative: General: Pleasant elderly male tachypneic obvious distress, wearing BiPAP sitting upright in bed fatigued, well developed, alert and oriented x3, pleasant, and cooperative. Head: atraumatic, normocephalic Eyes: EOM intact, sclerae anicteric, conjunctivae unremarkable Ears/Nose: external inspection of ears and nose were grossly normal BiPAP mask in place, limited exam Mouth/Throat: oral mucosa pink and moist limited exam due to BiPAP mask in place Neck: supple, normal range of motion, no jugular venous distention or carotid bruits, thyroid nonpalpable, trachea midline. Cardiac: Regular rate and rhythm, normal S1-S2, soft early systolic murmurs, distant heart sounds Lungs: Manage breath sounds diffusely, prolonged expiratory phase no obvious crackles or wheezes Abdomen: Soft, nontender, nondistended, positive bowel sounds throughout. No appreciable hepatosplenomegaly, rebound guarding or rigidity noted. Abdominal aorta nonpalpable, no appreciable bruits. Extremities: 1+ bilateral lower extremity edema, no clubbing, or cyanosis. Extremities warm and well perfused. Skin: Warm and dry without ecchymoses, rashes, and/or petechiae. Musculoskeletal: Muscle strength and tone intact throughout without obvious deformities. Vascular: Carotid upstrokes 2+ bilaterally, radial pulses 2+ bilaterally, dorsalis pedis pulses 1+ bilaterally Neurologic: Cranial nerves 2-12 grossly intact, examination grossly nonfocal Psychiatric: Mood calm and appropriate. Objective Data Vital Signs Vital Signs: Vital Signs - 24 hr 03/20/23 10:00 03/20/23 12:00 03/20/23 13:51 Temperature 36.7 C Pulse Rate 83 80 Respiratory Rate 30 H Blood Pressure 112/54 L Pulse Oximetry 90 92 Oxygen Delivery Nasal Cannula Oxygen Flow Rate 4 Fracti
--- NOTE | 2023-03-21 10:22 | WPDONCPN ---
Progress Note: A/P (1) Anemia Code(s): D64.9 - Anemia, unspecified Status: Acute (2) Thrombocytopenia Code(s): D69.6 - Thrombocytopenia, unspecified Status: Acute <Chanell Peña - 03/21/23 13:22> - Additional Plan Attending note. Patient seen and examined. Labs noted. Patient remains anemic and thrombocytopenic. Platelet antibodies are pending. Soluble transferrin receptor pending. Anemia is likely due to CKD and mild iron deficiency. Patient is on iron replacement therapy. Thrombocytopenia. Again unclear etiology. Could be secondary to bone marrow disorders. We will order bone marrow aspiration and biopsy next week. Left adrenal mass. CT scan showed stranding and possible nodularity along the right side of the greater omentum could be omental infarct or metastatic implants. Spleen ultrasound showed 3.9 x 3.2 x 2.3 cm hypoechoic region in the posterior margin of the spleen could represent cyst versus perisplenic ascites. We will order MRI. Alexis Mckeon MD <Alexis Mckeon - 03/21/23 17:34> Anemia and Thrombocytopenia and abdominal lesions- Patient is having worsening anemia after iron transfusion. Hgb dropped today to 7.7. Creatinine up to 2.00. He has known chronic kidney disease and anemia is likely multifactorial due to CKD and iron deficiency. Since there is a drop in Hgb, there is concern for possible MDS. There is also an increase in Bilirubin. I will order hemolytic anemia work up. I have explained a BMBX with patient in detail and he would like to talk with his daughter Diana before making a decision. I will also order 1 unit of PRBC due to symptomatic anemia and CHF. I have wrote a note for patient's reference to speak with daughter about and also have given him office information for any questions. His thrombocytopenia is unclear as well. Plt antibody testing is still pending. This could be related to MDS as well. Original abdominal ultrasound showed 1. Cholelithiasis. 2. Bilateral pleural effusions. 3. Bilateral renal cysts and increased renal cortical echogenicity, bladder consistent with medical renal disease. 4. Indeterminate 3.9 x 3.2 x 2.3 cm hypoechoic region along the posterior margin of the spleen. It is unclear where this represents a splenic lesion (potentially cystic), a small amount of perisplenic ascites or artifactual appearance related to the depth of imaging. Could consider CT for further evaluation. Further CT evaluation shows multiple areas of concern in his lungs, adrenals, and kidneys concerning for malignancy and suggest a pre/post MRI for evaluation. I have discussed these findings with patient. Patient is agreeable to MRI evaluation as this time. He will discuss with his daughter about a BMBX. We will order MRI for evaluation of lesions. This patient's plan of care has been reviewed and approved by Dr. Alexis Mckeon. If you have any questions regarding this hematology or oncology evaluation, feel free to contact us for further assistance.?Thank you for allowing us to be a part of this patient's care. Chanell Peña, SOLIS 03/21/23;1032 <Chanell Peña 03/21/23 13:23> - Time Spent With Patient Total time spent is greater than 50% in coordination of care (as documented) at patient's floor/unit and/or counseling patient: <Alexis Mckeon - 03/21/23 17:34> Total time spent is greater than 50% in coordination of care (as documented) at patient's floor/unit and/or counseling patient: <Chanell Peña 03/21/23 10:37> 15 - 25 minutes <Chanell Peña 03/21/23 10:24> Subjective Interval history: Patient is laying in bed in no acute distress. He is now on NC instead of BIPAP. He is feeling much better overall. <Chanell Peña 03/21/23 10:24> Review of Systems - Review of Systems All systems reviewed & are unremarkable except as noted in HPI and bel <Chanell Peña 03/21/23 10:24> - Neurologic Reports system reviewed and no additional complaints, exce
[2023-03-21 11:56] LABS: Glucose Point of Care 94 mg/dl (65-105)
--- NOTE | 2023-03-21 13:27 | PM.IMPN ---
Progress Note: A&P Assessment and Plan (1) Acute respiratory failure with hypoxia: Code(s): J96.01 - Acute respiratory failure with hypoxia Status: Acute Assessment and Plan: Resp failure related to congestive changes Pulmonary embolism is a consideration though seems less likely. Unable to have chest CTA due to decreased GFR. Lower extremity venous Doppler negative for DVT Started on Lasix with negative fluid balance and symptomatic care. Weaned off Bipap. Down to 2.5L O2. Wean off O2 as tolerated (2) Acute exacerbation of congestive heart failure: Code(s): I50.9 - Heart failure, unspecified Status: Acute Assessment and Plan: Chest x-ray shows congestive changes. BNP >30K. Echo 01/02/23 showing EF 45-55% with global hypokinesis and diastolic dysfunction Grade I Started on IV diuresis with Lasix for acute on chronic diastolic CHF. Cardiology following and appreciate their input Continue Coreg, Empagliflozin, Spironolactone Continue close monitoring of volume status, renal function, and electrolytes. Continue Lasix and was changed to oral route (3) Chronic kidney disease: Code(s): N18.9 - Chronic kidney disease, unspecified Status: Acute Assessment and Plan: Patient has CKD with baseline creatinine 2.1-2.3 range. Bladder scan not showing urine retention but he had an enlarging firm abdominal mass and CT scan did show bilateral hydronephrosis and distended bladder Betancur placed and returned 800mL CT scan showing multiple renal lesions. Please see report for details. Cr stable here at 2-2.2 range (4) Thrombocytopenia: Code(s): D69.6 - Thrombocytopenia, unspecified Status: Acute Assessment and Plan: Patient reports having platelet transfusion when hospitalized with bleeding following his colectomy last month. He does not have a longstanding history of thrombocytopenia. Hematology consulted for their opinion and lab work ordered. Plt count low but stable CT scan showing hypodense mass at the medial spleen, nodularity of the omentum and adrenal and renal masses Patient just had recent partial colectomy so would not expect widespread metastatic disease MRI ordered Follow (5) Chronic anemia: Code(s): D64.9 - Anemia, unspecified Status: Acute Assessment and Plan: Patient reports chronic anemia and received several units of packed red blood cells with his hospitalization in January. Hgb stable in the 8-9 range mostly but dropped to 7.7 today Iron studies consistent with iron deficiency anemia. B12/folate normal. IV iron started Transfusion ordered. Monitor HH (6) Chronic obstructive pulmonary disease: Code(s): J44.9 - Chronic obstructive pulmonary disease, unspecified Status: Acute Assessment and Plan: No wheezing on exam to suggest acute exacerbation. Follow (7) Coronary artery disease: Code(s): I25.10 - Atherosclerotic heart disease of [place] coronary artery without angina pectoris Status: Acute Assessment and Plan: Patient is not having any chest discomfort. EKG shows left bundle branch block which is chronic. Cardiology consulted. Continue Coreg, Lipitor. No ASA due to anemia and TCP. (8) Insulin dependent type 2 diabetes mellitus: Code(s): E11.9 - Type 2 diabetes mellitus without complications; Z79.4 - terminal make up operator (current) use of insulin Status: Acute Assessment and Plan: A1c 4.9. The patient's blood glucose was reviewed on 2/2 Glucose remains well controlled. Continue AccuCheks covering with sliding scale. Hypoglycemia protocol available as needed. Continue to monitor (9) Hypertension: Code(s): I10 - Essential (primary) hypertension Status: Acute Assessment and Plan: Patient's blood pressure was reviewed on 2/2 Blood pressure remains well controlled. Will continue to follow (10) Urine retention: Code(s
[2023-03-21 16:21] LABS: Glucose Point of Care 100 mg/dl (65-105)
[2023-03-21] MEDS: TUBING, BLOOD PLUM PUMP TUBING 1 EACH XX (16:57)
[2023-03-21] MEDS: SODIUM CHLORIDE 0.9% IV 250 ML 30 ML IV CONT (16:57)
[2023-03-21] MEDS: FINASTERIDE 5 MG TABLET PO (17:37)
[2023-03-21] MEDS: PANTOPRAZOLE 40 MG TABLET PO (17:37)
[2023-03-21] MEDS: ATORVASTATIN 40 MG TABLET PO (21:08)
[2023-03-21] MEDS: TAMSULOSIN HCL 0.4 MG CAPSULE PO (21:09)
[2023-03-21] MEDS: LATANOPROST 0.005% OP SOLN 2.5 ML BTL 1 DROP EACH EYE (21:16)
[2023-03-22] VITALS (23 sets, daily range): BP systolic 109–130; BP diastolic 50–65; PULSE 72–92; RESP 16–48; TEMP 36.1–37.1; O2SAT 91–100
[2023-03-22 00:47] LABS: Glucose Point of Care 94 mg/dl (65-105)
--- NOTE | 2023-03-22 01:03 | PM.EVENT ---
Event Note Event Note Event Note: Cross Coverage: Having intermittent confusion. ABG ordered to assess for CO2 retention. Currently tolerating BiPAP.
[2023-03-22 01:20] LABS: Alveolar/Arterial O2 Gradient 161.2 mmHg; Fractional Inspired Oxygen 40 %; HCO3 ABG 30.7 mEq/l (22.0-26.0); Oxygen Content ABG 13.1 %vol (16.0-22.0); Oxygen Saturation ABG 94.9 % (95.0-100.0); Oxyhemoglobin 91.9 % THb (90.0-100.0); PCO2 ABG 45.5 mmHg (35.0-45.0); PO2 ABG 71.7 mmHg (80.0-100.0); PO2 FiO2 Ratio Arterial Blood 1.79 %; Total Hemoglobin 10.1 g/dL (12.0-18.0); pH ABG 7.447 (7.350-7.450)
[2023-03-22 01:21] LABS: Device NON-INVASIVE VENT; Modified Allen's Test Pass; Site Drawn RIGHT RADIAL
[2023-03-22 01:22] LABS: Non-Invasive Expiratory Pressure 5 CMH2O; Non-Invasive Inspiratory Pressure 10 CMH2O
[2023-03-22 05:25] LABS: Immature Reticulocyte Fraction 29.2 % (3.0-15.9); Reticulocyte Hemoglobin Conten 32.8 pg (28.2-35.7); Reticulocyte Percent 4.09 % (0.7-4.3); Reticulocytes Absolute 0.12 M/mm3 (0.02-0.1)
[2023-03-22 05:57] LABS: Anion Gap 2 mmol/L (8-16); Blood Urea Nitrogen 37 mg/dL (9-20); Calcium 8.3 mg/dL (8.4-10.2); Carbon Dioxide 34 mmol/L (22-30); Chloride 103 mmol/L (98-107); Estimated CRCL calculation 30 ml/min; Estimated Glomerular Filt Rate 34; Glucose 80 mg/dL (65-110); Hemoglobin 8.7 g/dL (14.0-18.0); Immature Platelet Fraction Pct 9.8 % (0.9-11.2); Magnesium 2.1 mg/dL (1.6-2.3); Mean Corpuscular Hemoglobin 29.8 pg (26-34); Mean Corpuscular Volume 99.3 fl (80-100); Mean Platelet Volume 13.1 fl (7.4-10.4); Phosphorus 3.2 mg/dL (2.5-4.5); Platelet Count Result 57 k/mm3 (150-375); Potassium 3.8 mmol/L (3.4-5.0); Red Blood Count 2.92 M/mm3 (4.6-6.20); Red Cell Distribution Width 19.6 % (11.5-14.5); Sodium 139 mmol/L (137-145); White Blood Count 4.8 K/mm3 (4.5-10.0)
[2023-03-22 06:27] LABS: Lactate Dehydrogenase 179 U/L (120-246)
[2023-03-22 07:18] LABS: Band Neutrophils Percent 2 % (0-6); Hypochromasia 1+ (NORMAL); Large Platelets Present; Lymphocytes Absolute Manual 0.76 K/mm3 (1.1-4.5); Metamyelocytes Percent 2 %; Monocytes Absolute Manual 1.05 K/mm3 (0.1-0.90); Monocytes Percent Manual 22 % (3-9); Myelocytes Percent 1 %; Neutrophils Absolute Manual 2.83 K/mm3 (1.3-6.7); Neutrophils Percent Manual 57 % (46-73); Platelet Estimate Decreased (Adequate); Total Cells Counted 100
[2023-03-22 07:19] LABS: Anisocytosis 1+ (NORMAL); Schistocytes None Seen (NORMAL)
[2023-03-22] MEDS: FUROSEMIDE 80 MG TABLET PO (09:18)
[2023-03-22] MEDS: carvediloL 3.125 MG TABLET PO ×2 (09:18→20:31)
[2023-03-22] MEDS: CYANOCOBALAMIN 1,000 MCG TABLET 1000 MCG PO (09:18)
[2023-03-22] MEDS: FERROUS SULFATE 325 MG TABLET DR PO ×2 (09:18→17:36)
[2023-03-22] MEDS: CEPHALEXIN 500 MG CAPSULE PO ×2 (09:18→20:31)
[2023-03-22] MEDS: SPIRONOLACTONE 25 MG TABLET PO (09:19)
[2023-03-22] MEDS: FINASTERIDE 5 MG TABLET PO (09:19)
[2023-03-22] MEDS: EMPAGLIFLOZIN 10 MG TABLET PO (09:19)
[2023-03-22] MEDS: ISOSORBIDE DINITRATE 20 MG TABLET PO ×2 (09:19→17:36)
[2023-03-22] MEDS: OMEGA 3 POLYUNSAT FATTY ACIDS 1 GM CAP PO ×2 (09:19→17:36)
[2023-03-22 11:34] LABS: Glucose Point of Care 77 mg/dl (65-105)
[2023-03-22 11:42] LABS: Glucose Point of Care 97 mg/dl (65-105)
--- NOTE | 2023-03-22 11:42 | PCPTNOTE ---
HOLD PT eval per RN Leah ~ 1130 due to pt having SOB.
--- NOTE | 2023-03-22 12:24 | PM.IMPN ---
Progress Note: A&P Assessment and Plan (1) Acute respiratory failure with hypoxia: Code(s): J96.01 - Acute respiratory failure with hypoxia Status: Acute Assessment and Plan: Resp failure related to CHF Pulmonary embolism is a consideration though seems less likely. Unable to have chest CTA due to decreased GFR. Lower extremity venous Doppler negative for DVT Started on Lasix with negative fluid balance and symptomatic improvement Weaned off Bipap. Down to 2L O2. Patient was more tachypneic when moving to stretcher so CXR ordered CXR reviewed today showing diffuse lung disease PNA vs pulmonary edema. Doubt hemorrhage; lymphangitic spread less likely On Keflex from home but not on abx for PNA. No fevers. WBC normal. Suspect still related to CHF. Would consider viral illness so will check Wean off O2 as tolerated (2) Acute exacerbation of congestive heart failure: Code(s): I50.9 - Heart failure, unspecified Status: Acute Assessment and Plan: Chest x-ray shows congestive changes. BNP >30K. Echo 01/02/23 showing EF 45-55% with global hypokinesis and diastolic dysfunction Grade I Started on IV diuresis with Lasix for acute on chronic diastolic CHF. Cardiology following and appreciate their input Negative fluid balance. Continue Coreg, Empagliflozin, Spironolactone. Changed to oral Lasix now. Continue close monitoring of volume status, renal function, and electrolytes. (3) Chronic kidney disease: Code(s): N18.9 - Chronic kidney disease, unspecified Status: Acute Assessment and Plan: Patient has CKD with baseline creatinine 2.1-2.3 range. Bladder scan not showing urine retention but he had an enlarging firm abdominal mass and CT scan did show bilateral hydronephrosis and distended bladder Betancur placed and returned 800mL CT scan showing multiple renal lesions. Please see report for details. Cr stable here at 1.9-2.2 range (4) Thrombocytopenia: Code(s): D69.6 - Thrombocytopenia, unspecified Status: Acute Assessment and Plan: Patient reports having platelet transfusion when hospitalized with bleeding following his colectomy last month. He does not have a longstanding history of thrombocytopenia. Hematology consulted for their opinion and lab work ordered. Plt count low but stable CT scan showing hypodense mass at the medial spleen, nodularity of the omentum and adrenal and renal masses Patient just had recent partial colectomy so would expect widespread metastatic disease to be noted by surgeon MRI ordered Follow (5) Chronic anemia: Code(s): D64.9 - Anemia, unspecified Status: Acute Assessment and Plan: Patient reports chronic anemia and received several units of packed red blood cells with his hospitalization in January. Hgb stable in the 8-9 range mostly. Hgb dropped to 7.7 and 1U PRBC transfusion ordered. Iron studies consistent with iron deficiency anemia. B12/folate normal. IV iron given and now on oral Monitor HH (6) Chronic obstructive pulmonary disease: Code(s): J44.9 - Chronic obstructive pulmonary disease, unspecified Status: Acute Assessment and Plan: No wheezing on exam to suggest acute exacerbation. Follow (7) Coronary artery disease: Code(s): I25.10 - Atherosclerotic heart disease of [place] coronary artery without angina pectoris Status: Acute Assessment and Plan: Patient is not having any chest discomfort. EKG shows left bundle branch block which is chronic. Cardiology consulted. Continue Coreg, Lipitor. No ASA due to anemia and TCP. (8) Insulin dependent type 2 diabetes mellitus: Code(s): E11.9 - Type 2 diabetes mellitus without complications; Z79.4 - snf (current) use of insulin Status: Acute Assessment and Plan: A1c 4.9. The patient's blood glucose was reviewed on 2/ Glucose remains well controlled. Continue AccuCheks covering
[2023-03-22 14:33] LABS: Influenza A QL RT-PCR Negative (Negative); Influenza B QL RT-PCR Negative (Negative); RSV RNA, RT-PCR Negative (Negative); SARS-CoV-2 RNA PCR Negative (Negative)
[2023-03-22 16:40] LABS: Glucose Point of Care 80 mg/dl (65-105)
[2023-03-22 17:32] LABS: Methylmalonic Acid 308 nmol/L (87-318)
[2023-03-22] MEDS: PANTOPRAZOLE 40 MG TABLET PO (17:36)
[2023-03-22] MEDS: ATORVASTATIN 40 MG TABLET PO (20:31)
[2023-03-22] MEDS: LATANOPROST 0.005% OP SOLN 2.5 ML BTL 1 DROP EACH EYE (20:32)
[2023-03-22] MEDS: TAMSULOSIN HCL 0.4 MG CAPSULE PO (20:32)
[2023-03-22 20:53] LABS: Glucose Point of Care 122 mg/dl (65-105)
[2023-03-22] MEDS: INSULIN GLARGINE (*BKC) 100 UNITS/ML 20 UNITS SUB-Q (21:48)
[2023-03-23] VITALS (7 sets, daily range): BP systolic 114–126; BP diastolic 52–63; PULSE 79–99; RESP 48; TEMP 36.6–36.8; O2SAT 92–98
[2023-03-23 05:17] LABS: Basophils Percent Auto 0.2 % (0.2-1.2); Hemoglobin 8.8 g/dL (14.0-18.0); Immature Granulocyte Absolute 0.09 K/mm3 (0.00-0.031); Immature Platelet Fraction Pct 8.9 % (0.9-11.2); Lymphocytes Absolute Auto 0.47 K/mm3 (0.9-3.2); Lymphocytes Percent Auto 10.4 % (18.3-44.2); Mean Corpuscular HGB Conc 29.3 g/dl (32-36); Mean Corpuscular Hemoglobin 29.5 pg (26-34); Mean Corpuscular Volume 100.7 fl (80-100); Mean Platelet Volume 12.7 fl (7.4-10.4); Monocytes Percent Auto 43.2 % (2.6-8.5); Neutrophils Percent Auto 44.2 % (45.5-73.1); Platelet Count Result 58 k/mm3 (150-375); Red Blood Count 2.98 M/mm3 (4.6-6.20); Red Cell Distribution Width 19.7 % (11.5-14.5); White Blood Count 4.5 K/mm3 (4.5-10.0)
[2023-03-23 05:32] LABS: Anion Gap 5 mmol/L (8-16); Blood Urea Nitrogen 39 mg/dL (9-20); Calcium 8.4 mg/dL (8.4-10.2); Carbon Dioxide 35 mmol/L (22-30); Chloride 102 mmol/L (98-107); Estimated CRCL calculation 29 ml/min; Estimated Glomerular Filt Rate 32; Glucose 82 mg/dL (65-110); Potassium 4.2 mmol/L (3.4-5.0); Sodium 142 mmol/L (137-145)
[2023-03-23 05:38] LABS: Platelet Estimate Decreased (Adequate)
[2023-03-23 05:39] LABS: Anisocytosis 1+ (NORMAL); Schistocytes Rare (NORMAL); Tear Drop Cells 1+ (NORMAL)
--- NOTE | 2023-03-23 06:48 | PC.NURSE ---
I took over care from Yvette Pineda RN at 0500. Patient continues to refuse his BIPAP. Over the past 20 minutes his O2 sat has fallen to 85%, patient states he does not want anymore treatment and is ready to . Patient is cool and clammy, diaphoretic. I called Denise Andrade (daughter) and explained the situation. She has decided to change his code status to DNR as this is what her father requests. She is on her way in to the hospital. Kimmie Pickard RN assisted me with the patient while I was on the phone. Patient did agree to resume his BIPAP at this time so Denise can get here. FIO2 increased to 100% on the BIPAP. I called Dr. Martinez and explained the situation. The patient is now again wanting the BIPAP off. Will place on a high flow cannula, however O2 sat is now 84%.
--- NOTE | 2023-03-23 07:26 | PC.NURSE ---
Denise is now at the bedside. Dr. Melendrez is also at the bedside. Patient considered to try the BIPAP again but then changed his mind and wants comfort care. See orders.
--- NOTE | 2023-03-23 07:28 | PM.IMPN ---
Progress Note: A&P Assessment and Plan (1) Acute respiratory failure with hypoxia: Code(s): J96.01 - Acute respiratory failure with hypoxia Status: Acute (2) Acute exacerbation of congestive heart failure: Code(s): I50.9 - Heart failure, unspecified Status: Acute (3) Chronic kidney disease: Code(s): N18.9 - Chronic kidney disease, unspecified Status: Acute (4) Thrombocytopenia: Code(s): D69.6 - Thrombocytopenia, unspecified Status: Acute (5) Chronic anemia: Code(s): D64.9 - Anemia, unspecified Status: Acute (6) Chronic obstructive pulmonary disease: Code(s): J44.9 - Chronic obstructive pulmonary disease, unspecified Status: Acute (7) Coronary artery disease: Code(s): I25.10 - Atherosclerotic heart disease of [place] coronary artery without angina pectoris Status: Acute (8) Insulin dependent type 2 diabetes mellitus: Code(s): E11.9 - Type 2 diabetes mellitus without complications; Z79.4 - MCC (current) use of insulin Status: Acute (9) Hypertension: Code(s): I10 - Essential (primary) hypertension Status: Acute (10) Urine retention: Code(s): R33.9 - Retention of urine, unspecified Status: Acute Plan Patient will be transitioned to comfort measures. Stop all medical treatment including oral medications. Comfort focused care now. No needlesticks. Start Morphine drip. Morphine available as needed as well. He is narcotic naive. Add Ativan prn for anxiety. Care coordination for hospice consult. Oxygen for comfort. Pastoral care. My thoughts and prayers go out to the patient and family during this stressful time. Subjective Date/time seen: 03/23/23 07:28 Interval history: 82yo male with COPD, CHF, CAD, HTN and DM here for SOB. Called to the room this morning. Patient refused BiPAP last night and was hypoxic requiring high flow NC. He was cool and clammy. Dtr was called and is currently in the room. Patient wore the BiPAP for a brief amount of time but then refused it again. He reiterates that he is a DNR. Long discussion with the patient and dtr. Explained current findings and care plan. We talked about the abd CT findings and concern for malignancy. Also explained that he was having improvement but still unclear on etiology of all of his findings. Explained to patient that we can keep going with further testing and treatment or switch to comfort measures and allow for natural . He voices understanding and decided to be kept comfortable. Dtr supports his decision. Will change to comfort measures. Patient and family were okay with morphine drip. Exam Narrative: AF 97.8 114/52 92 48 98% bipap (currently on HFNC) Gen - tachypneic Chest - coarse BS CV - S1/S2 Abd - Soft, ND, NT - Betancur secured Ext - scant pedal edema Psych - alert and appropriate Skin - cool and dry Objective Data Vital Signs Vital Signs: Vital Signs - 24 hr 03/22/23 07:48 03/22/23 09:18 03/22/23 09:13 Temperature 98.0 F Pulse Rate 88 89 91 Respiratory Rate 16 37 H Blood Pressure 130/65 Pulse Oximetry 95 92 Oxygen Delivery BiPAP Oxygen Flow Rate 03/22/23 11:41 03/22/23 08:00 03/22/23 12:00 Temperature 98.8 F Pulse Rate 80 Respiratory Rate 20 Blood Pressure 124/61 Pulse Oximetry 92 92 92 Oxygen Delivery Nasal Cannula Nasal Cannula Oxygen Flow Rate 4 4 03/22/23 14:12 03/22/23 15:34 03/22/23 08:00 Temperature 98.4 F Pulse Rate 86 92 Respiratory Rate 48 H Blood Pressure 117/59 L Pulse Oximetry 92 91 Oxygen Delivery Nasal Cannula Oxygen Flow Rate 5 03/22/23 10:00 03/22/23 12:00 03/22/23 14:00 Temperature Pulse Rate 83 81 84 Respiratory Rate Blood Pressure Pulse Oximetry Oxygen Delivery Oxygen Flow Rate 03/22/23 16:00 03/22/23 16:00 03/22/23 18:06 Temperature Pulse Rate 89 88 Respiratory Rate 32 H Blood
[2023-03-23] MEDS: MORPHINE SULFATE (*CRX) 2 MG/ML INJ IV PUSH (07:47)
[2023-03-23] MEDS: LORazepam INJ (*CRX) 2 MG/ML VIAL 1 MG IV PUSH ×2 (07:48→10:16)
[2023-03-23] MEDS: MORPHINE SULFATE INJ (*CRX) 50 MG in SODIUM CHLORIDE 0.9% IV 95 ML IV CONT (08:18)
[2023-03-23] MEDS: SCOPOLAMINE 1 MG PATCH 1 PATCH TRANSDERM (08:18)
--- NOTE | 2023-03-23 10:35 | PM.PNCARD ---
Progress Note: A&P Assessment and Plan (1) Acute exacerbation of congestive heart failure: Code(s): I50.9 - Heart failure, unspecified Status: Acute Plan 82-year-old man with multiple medical problems including coronary disease and chronic ischemic cardiomyopathy. Due to deteriorating clinical condition, patient has been placed on comfort care. Cardiac medications have been discontinued. May discontinue telemetry. Patient's family members updated. Discussed with hospitalist team. Subjective Date/time seen: 03/23/23 10:35 Interval history: Date of service: 03/23/2023 Interval history: Patient is poorly responsive, lying on the bed. Multiple family members in the room. Patient has been placed on comfort care. Exam Narrative: PHYSICAL EXAMINATION: GENERAL: Poorly responsive MENTAL STATUS: No agitation EYES: Eyes closed EARS: External ears appear normal NOSE: Normal and patent, no discharge MOUTH: Mucous membranes dry NECK: JVD CHEST: Poor respiratory effort HEART: Normal rate, regular rhythm ABDOMEN: Soft NEUROLOGICAL: Poorly responsive SKIN: no cyanosis PSYCHIATRIC: No agitation Objective Data Vital Signs Vital Signs: Vital Signs - 24 hr 03/22/23 11:41 03/22/23 12:00 03/22/23 14:12 Temperature 37.1 C Pulse Rate 80 Respiratory Rate 20 Blood Pressure 124/61 Pulse Oximetry 92 92 92 Oxygen Delivery Nasal Cannula Nasal Cannula Oxygen Flow Rate 4 5 03/22/23 15:34 03/22/23 12:00 03/22/23 14:00 Temperature 36.9 C Pulse Rate 86 81 84 Respiratory Rate 48 H Blood Pressure 117/59 L Pulse Oximetry 91 Oxygen Delivery Oxygen Flow Rate 03/22/23 16:00 03/22/23 16:00 03/22/23 18:06 Temperature Pulse Rate 89 88 Respiratory Rate 32 H Blood Pressure Pulse Oximetry 91 96 Oxygen Delivery Nasal Cannula BiPAP Oxygen Flow Rate 5 03/22/23 18:00 03/22/23 20:31 03/22/23 20:00 Temperature 36.1 C L Pulse Rate 88 79 82 Respiratory Rate 48 H Blood Pressure 124/61 Pulse Oximetry 99 Oxygen Delivery Oxygen Flow Rate 03/22/23 20:00 03/22/23 22:00 03/22/23 23:26 Temperature 36.4 C Pulse Rate 88 86 77 Respiratory Rate 48 H Blood Pressure 109/50 L Pulse Oximetry 100 Oxygen Delivery Oxygen Flow Rate 03/23/23 00:00 03/22/23 21:15 03/23/23 02:00 Temperature Pulse Rate 79 82 82 Respiratory Rate 34 H Blood Pressure Pulse Oximetry 98 Oxygen Delivery BiPAP Oxygen Flow Rate 03/23/23 04:00 03/23/23 04:52 03/23/23 06:00 Temperature 36.6 C Pulse Rate 83 83 92 Respiratory Rate 48 H Blood Pressure 114/52 L Pulse Oximetry 98 Oxygen Delivery Oxygen Flow Rate 03/23/23 07:41 Temperature 36.8 C Pulse Rate 99 Respiratory Rate 48 H Blood Pressure 126/63 Pulse Oximetry 92 Oxygen Delivery Oxygen Flow Rate Intake/Output Intake/Output: Intake & Output 03/20/23 03/21/23 03/22/23 03/23/23 23:59 23:59 23:59 23:59 Intake Total 748 1300 1770 250 Output Total 750 2050 0114 300 [facility] -2 -750 -1055 -50 Meds/Results Medications: Active Medications Generic Name Dose Route Start Last Admin Trade Name Freq PRN Reason Stop Dose Admin Acetaminophen 650 mg 03/19/23 00:41 Acetaminophen 325 Mg Tablet PO Q6H PRN Mild Pain (1-3) or Fever Acetaminophen 650 mg 03/23/23 07:24 Acetaminophen 650 Mg Suppository RECTAL Q6H PRN Mild Pain (1-3) or Fever Artificial Tears 1 drop 03/23/23 07:24 Artificial Tears Ophth Soln 15 Ml Bottle EACH EYE Q4H PRN Dry Eye(s) Morphine Sulfate 50 mg/ Sodium 100 mls @ 2 mls/hr 03/23/23 08:00 03/23/23 08:18 Chloride IV CONT 1 mg/hr .Q24H ASHLIE 2 mls/hr Administration 1 MG/HR Lorazepam 1 mg 03/23/23 07:24 03/23/23 10:16 Lorazepam Inj (*Crx) 2 Mg/Ml Vial IV PUSH 1 mg Q2H PRN Administration Anxiety or air hunger Morphine Sulfate 2 mg 03/23/23 07:24 02
[2023-03-23 11:38] LABS: Glucose Point of Care 91 mg/dl (65-105)
--- NOTE | 2023-03-23 11:44 | PC.NURSE ---
Patient peacefully on 03/23/23 at 1104. He was on comfort care. Family was at bedside.
--- NOTE | 2023-03-23 14:53 | PM.DDS ---
Discharge Summary Date and Time Date of : 03/23/23 Time of : 11:04 Provider Pronounced By: Leah VASQUES Probable Cause of Probable Cause of : Respiratory failure Summary Hospital Course: Patient had multiple hospitalizations over the last 2 months. He presented here for shortness of breath. Resp failure related to acute on chronic diastolic CHF. Started on Lasix with negative fluid balance and symptomatic improvement. He was weaned off Bipap and oxygen requirement was improved. He had a CT scan of the abdomen showing hypodense mass at the medial spleen, nodularity of the omentum and adrenal and renal masses. CXR on admission showing pulmonary edema but repeat CXR showing diffuse lung disease. His oxygen requirement worsened. He Patient was refusing BiPAP and was hypoxic requiring high flow nasal cannula. He was cool and clammy. Dtr was called. Patient was a DNR that was confirmed with him and family. Long discussion with the patient and dtr. Explained current findings and care plan. We talked about the abd CT findings and concern for malignancy. Explained to patient that we can keep going with further testing and treatment or switch to comfort measures and allow for natural . He voices understanding and decided to be kept comfortable. Dtr supports his decision. He was changed to comfort measures and became more comfortable. He passed a few hours later. Additional Data Confirmation of as documented by pronouncing clinician: Pupillary Reflex, Palpable Pulses, Response to Stimuli, Heart Tones and Breath Sounds Name of Provider Notified: Dr. Melendrez Time Provider Notified: 11:12 Provider Requests Autopsy: No Family Requests Autopsy: No Head Stock Transfer Clerk Notified: Yes Date [facility] Notified of : 03/23/23 Time [facility] Notified of : 11:25
[2023-03-24 11:07] LABS: Soluble Transferrin Receptor 4.42 mg/L (0.76-1.76)
[2023-03-25 22:56] LABS: Platelet Antibody, Direct NEGATIVE (NEGATIVE)
== END 2023-03-23 11:04 | disposition expired ==
LOC: ANHED 17:43 → ANH3MEDSUR 18:23 → ANHIMU 22:49
PROVIDERS: Internal Medicine Cardiovascular Disease; Nurse Practitioner Family; Physician Assistant; Student in an Organized Health Care Education/Training Program; Admitting Provider Family Medicine; Emergency Provider Emergency Medicine; PCP Internal Medicine; Visit Provider Internal Medicine
DX: I13.0 Hypertensive heart and chronic kidney disease with heart failure and stage 1 through stage 4 chronic kidney disease, or unspecified chronic kidney disease (principal); I50.33 Acute on chronic diastolic (congestive) heart failure; I21.4 Non-ST elevation (NSTEMI) myocardial infarction; J96.21 Acute and chronic respiratory failure with hypoxia; N17.9 Acute kidney failure, unspecified; E11.22 Type 2 diabetes mellitus with diabetic chronic kidney disease; N18.9 Chronic kidney disease, unspecified; I25.5 Ischemic cardiomyopathy; J44.9 Chronic obstructive pulmonary disease, unspecified; F41.9 Anxiety disorder, unspecified; I25.10 Atherosclerotic heart disease of native coronary artery without angina pectoris; H40.9 Unspecified glaucoma; N40.0 Benign prostatic hyperplasia without lower urinary tract symptoms; R33.9 Retention of urine, unspecified; D69.6 Thrombocytopenia, unspecified; D63.1 Anemia in chronic kidney disease; D50.9 Iron deficiency anemia, unspecified; E78.5 Hyperlipidemia, unspecified; Z79.4 Long term (current) use of insulin; Z87.891 Personal history of nicotine dependence; Z95.5 Presence of coronary angioplasty implant and graft; Z66 Do not resuscitate
CPT/HCPCS: 36415; 36430; 36600; 71045; 71046; 74176; 76700; 80048; 80053; 80069; 82607; 82728; 82746; 82805; 82948; 83036; 83540; 83550; 83615; 83735; 83880; 83921; 84100; 84238; 84484; 85025; 85027; 85046; 85055; 86023; 86850; 86880; 86900; 86901; 86923; 87637; 93005; 93970; 94002; 94003; 94640; 96374; 96376; 97110; 97165; 99285; A9270; G0378; J1756; J1815; J1940; J2060; J2270; J7050; P9016